=== PATIENT | male | born 1950 | race Caucasian/White ===

== ENCOUNTER 2016-06-16 22:46 | Emergency (ER) | payer OTHER ==
[2016-06-16 22:51] VITALS: BP 163/79; PULSE 95; RESP 16; TEMP 97.5; O2SAT 91
--- NOTE | 2016-06-16 22:55 | EDPHY ---
H & P Stated Complaint: Left middle finger infection HPI/ROS: HPI CHIEF COMPLAINT: [ ] HISTORY OF PRESENT ILLNESS: [Need 4: Location, Duration, Severity, Quality, Context, Timing Modifying Factors, Associated S&S] Past Medical History: Past Surgical History: Social History: Family History: ROS REVIEW OF SYSTEMS: A comprehensive 10 point review of systems is otherwise negative aside from elements mentioned in the history of present illness. Exam Constitutional triage nursing summary reviewed, vital signs reviewed, awake/ alert. Eyes normal conjunctivae and sclera, EOMI, PERRLA. HENT normal inspection, atraumatic, moist mucus membranes, no epistaxis, neck supple/ no meningismus, no raccoon eyes. Respiratory clear to auscultation bilaterally, normal breath sounds, no respiratory distress, no wheezing. Cardiovascular rate normal, regular rhythm, no murmur, no edema, distal pulses normal. Gastrointestinal soft, non-tender, no rebound, no guarding, normal bowel sounds, no distension, no pulsatile mass. Genitourinary no CVA tenderness. Musculoskeletal no midline vertebral tenderness, full range of motion, no calf swelling, no tenderness of extremities, no meningismus, good pulses, neurovascularly intact. Skin pink, warm, & dry, no rash, skin atraumatic. Neurologic awake, alert and oriented x 3, AAOx3, moves all 4 extremities equally, motor intact, sensory intact, CN II-XII intact, normal cerebellar, normal vision, normal speech. Psychiatric normal mood/affect. Heme/Lymph/Immune no lymphadenopathy. Differential Diagnosis: Medical Decision Making: Re-evaluation: Source: Patient - Personal History Current Tetanus/Diphtheria Vaccine: Yes Current Tetanus Diphtheria and Acellular Pertussis (TDAP): Yes - Medical/Surgical History Hx Asthma: No Hx Chronic Respiratory Disease: No Hx Diabetes: No Hx Cardiac Disease: No Hx Renal Disease: No Hx Cirrhosis: No Hx Alcoholism: No Hx HIV/AIDS: No Hx Splenectomy or Spleen Trauma: No Other PMH: HTN - Social History Smoking Status: Never smoked Constitutional: Initial Vital Signs Temperature (C) 36.4 C 06/16/16 22:50 Heart Rate 95 06/16/16 22:50 Respiratory Rate 16 06/16/16 22:50 Blood Pressure 163/79 H 06/16/16 22:50 O2 Sat (%) 91 L 06/16/16 22:50 O2 Delivery Mode Room Air Allergies/Adverse Reactions: Sulfa (Sulfonamide Antibiotics) Allergy (Verified 06/16/16 22:51) Home Medications: Medication Instructions Recorded Losartan/Hydrochlorothiazide 06/16/16 Departure - Departure Condition: Good
--- NOTE | 2016-06-16 23:03 | EDPHY ---
H & P Time Seen by Provider: 06/16/16 23:01 HPI/ROS: CHIEF COMPLAINT: left middle finger pain HISTORY OF PRESENT ILLNESS: 65-year-old male presents emergency department complaining of left middle finger pain for the past 4 days. Patient has been soaking his finger in warm salt water and his pain is increasing. He denies fevers or chills, no numbness or tingling to this finger, he is right-hand- dominant. He denies trauma. Smoking Status: Never smoked Physical Exam: GEN: Awake, alert, oriented, no acute distress RESP: nl resp effort MSK: Left middle finger with full active range of motion, paronychia to medial aspect of middle finger with mild swelling, tenderness to palpation. Cap refill less than 2 seconds, sensation intact to light touch Constitutional: Initial Vital Signs Temperature (C) 36.4 C 06/16/16 22:50 Heart Rate 95 06/16/16 22:50 Respiratory Rate 16 06/16/16 22:50 Blood Pressure 163/79 H 06/16/16 22:50 O2 Sat (%) 91 L 06/16/16 22:50 O2 Delivery Mode Room Air Allergies/Adverse Reactions: Sulfa (Sulfonamide Antibiotics) Allergy (Verified 06/16/16 22:51) Home Medications: Medication Instructions Recorded Cephalexin [Keflex] 500 mg PO QID 5 Days 06/16/16 Losartan/Hydrochlorothiazide 06/16/16 MDM/Departure - MDM Procedures: Procedure: Incision and Drainage paronychia The patient's abscess was located on the left middle finger. Risks, benefits, alternatives discussed with the patient and consent obtained. The area was prepped and draped in sterile fashion. The patient received local anesthesia with a digital block using 5 mL of 1% lidocaine without epinephrine The abscess was incised with a #11 blade and purulent drainage was expressed. The patient tolerated the procedure well. The procedure was performed by myself. - Depart Disposition: Home, Routine, Self-Care Clinical Impression: Paronychia of left middle finger Condition: Good Instructions: Paronychia (ED) Additional Instructions: Soak your finger in warm water 5 times a day for 5-10 minutes. Keep clean and dry. Start taking the antibiotic if symptoms are not improving in the next day or 2. Return to the emergency department for worsening symptoms, fevers, other questions or concerns. Prescriptions: Cephalexin [Keflex] 500 mg PO QID 5 Days Referrals: NONE *PRIMARY CARE P,. [Primary Care Provider] - As per Instructions
== END 2016-06-16 23:39 | disposition home or self-care (01) ==
PROC: 0H9GXZZ Drainage of Left Hand Skin, External Approach (ICD-10-PCS; principal; 2016-06-16)
DX: L03.012 Cellulitis of left finger (principal)